=== PATIENT | female | born 1960 | race Caucasian/White ===

== ENCOUNTER 2018-03-09 13:51 | Inpatient (IN) | payer OTHER ==
[2018-03-09] MEDS ORDERED: cefTRIAXone\\ROCEPHIN 1 GM VIAL ONE (14:36)
[2018-03-09] MEDS ORDERED: Azithromycin 250 MG TAB ONE (14:36)
[2018-03-09] MEDS ORDERED: Sodium Chloride 0.9% 100 ML ONE (14:36)
--- NOTE | 2018-03-09 15:06 | RAD ---
CHEST 1 VIEW: Date: 03/09/18 HISTORY: Cough. COMPARISON: None. FINDINGS: There is a right basilar air space opacity. There are multiple coronary artery stents. No pneumothora x. No effusion. IMPRESSION: Right basilar air space opacity concerning for infection. Follow-up recommended. POS: [facility]
[2018-03-09 16:09] LABS: ALT (SGPT) 14 U/L (8-55); AST (SGOT) 21 U/L (5-34); Albumin 3.9 g/dL (3.5-5.0); Alkaline Phosphatase 99 U/L (40-150); Anion Gap 16 mmol/L (10-20); BUN (Urea Nitrogen) 16 mg/dL (9.8-20.1); Bilirubin, Total 0.7 mg/dL (0.2-1.2); Calc. Creatinine Clearance 0 mL/min (70-130); Calcium 9.2 mg/dL (7.8-10.44); Carbon Dioxide 21 mmol/L (22-29); Chloride 101 mmol/L (98-107); Estimated GFR-MDRD 49; Globulin 3.2 g/dL (2.4-3.5); Glucose 258 mg/dL (70-105); Protein, Total 7.1 g/dL (6.0-8.3); Sodium 135 mmol/L (136-145)
[2018-03-09] MEDS ORDERED: Ondansetron PF 4 MG/2 ML Vial ONE ×2 (16:16→17:32)
[2018-03-09 16:18] LABS: #Lymphocytes 0.9 thou/uL (1.20-3.40); #Monocytes 0.4 thou/uL (0.11-0.59); #Neutrophils 3.9 thou/uL (1.40-6.50); %Basophils 0.1 % (0.0-1.0); %Eosinophils 0.4 % (0.0-10.0); %Lymphocytes 17.3 % (21.0-51.0); %Monocytes 8.3 % (0.0-10.0); %Neutrophils 73.8 % (42.0-75.0); Hemoglobin 15.1 g/dL (12.0-16.0); Mean Corpuscular Hemoglobin 29.5 pg (27.0-31.0); Mean Corpuscular Volume 89.5 fL (78.0-98.0); Mean Platelet Volume 7.8 fL (7.4-10.4); Platelet Count 169 thou/uL (130-400); RBC Distribution Width 12.2 % (11.5-14.5); Red Blood Cell (RBC) Count 5.12 mill/uL (4.20-5.40); White Blood Cell (WBC) Count 5.2 thou/uL (4.8-10.8)
[2018-03-09] MEDS ORDERED: Acetaminophen 500 MG TAB ONE (17:39)
[2018-03-09] MEDS ORDERED: cloNIDine 0.1 MG TAB PO PRN (18:27)
[2018-03-09] MEDS ORDERED: Ondansetron PF 4 MG/2 ML Vial IVP PRN (18:27)
[2018-03-09] MEDS ORDERED: Acetaminophen 500 MG TAB PO PRN (18:27)
[2018-03-09] MEDS ORDERED: Ondansetron ODT 4 MG TAB PO PRN (18:27)
[2018-03-09] MEDS ORDERED: Benzonatate 100 MG CAP PO PRN (18:27)
[2018-03-09] MEDS ORDERED: hydrALAZINE 20 MG/ML VIAL SLOW IVP PRN (18:27)
[2018-03-09 18:51] VITALS: BMI 28.4
[2018-03-09] MEDS: Sodium Chloride 0.9% 1,000 ML IV SCH (20:37)
[2018-03-09] MEDS: Famotidine 20 MG TAB PO SCH (20:40)
--- NOTE | 2018-03-10 00:28 | HP ---
DATE OF ADMISSION: 03/09/2018 PRIMARY CARE PHYSICIAN: Peter call admission. CHIEF COMPLAINT: Body aches and fatigue. HISTORY OF PRESENT ILLNESS: This is a 57-year-old female who presents to [facility] complaining of 3- to 4-day history of increasing fatigue, weakness, body ache s, and fever. Patient states she thought she had a viral infection and self-managed with Mucinex and DayQuil. Patient states the symptoms continued to progress with chills, cough, congestion, and fati pamela. Patient states she was recently visiting her son driving back from [place] to [place] when she langston d to sample puller to the side of the road due to the symptoms described previously. Patient states she has recently received an influenza vaccination in 01/2018 and a pneumonia vaccination in 2016. Arlene lieberman relates the history of chronic immunosuppressive therapy, status post right kidney transplant in 2 . Patient denied any specific sick contacts family members with similar symptoms, history of pneu monia or recurrent infections. Patient denies any recent antibiotic exposure or new medications. Jones jones denied any change to bowel habits, dysuria, hemoptysis, or hematemesis. In the emergency room, patient underwent general evaluation including portable chest x-ray imaging showing questionable rig ht lower lobe infiltrate. Patient received IV fluids x1 liter in addition to Rocephin and azithromyc in after concern for developing pneumonia. Patient also received DuoNebs x1 treatment. PAST MEDICAL HISTORY: 1. Coronary artery disease, status post cardiac stent placement x13?. 2. Diabetes mellitus, type 2. 3. Hypertension. 4. Chronic obstructive pulmonary disease. 5. Chronic immunosuppressive therapy. PAST SURGICAL HISTORY: 1. Status post right renal transplant in 2008. 2. Status post cholecystectomy. 3. Status post placement of AV fistula to the right upper extremity, nonfunctioning. 4. Status post hysterectomy. 5. Status post multiple ear surgeries. CURRENT MEDICATIONS: 1. Amlodipine 10 mg 1 tab p.o. daily. 2. Lipitor 40 mg p.o. at bedtime. 3. Bupropion 150 mg p.o. b.i.d. 4. Plavix 75 mg 1 tab p.o. daily. 5. Flonase 1 spray in each naris daily. 6. Hydroxyzine 50 mg p.o. b.i.d. 7. Lamotrigine 150 mg p.o. daily. 8. Magnesium oxide 500 mg p.o. b.i.d. 9. Ranitidine 150 mg p.o. daily. 10. Tizanidine 4 mg p.o. t.i.d. 11. [place] 10/325 mg p.o. q.6 hours p.r.n. pain. 12. Prograf 2 mg p.o. b.i.d. 13. Mycophenolate 500 mg p.o. b.i.d. 14. Benadryl 50 mg p.o. at bedtime. ALLERGIES: PENICILLIN. FAMILY HISTORY: Positive for hypertension. SOCIAL HISTORY: Patient resides in the [place], [place] area. No current alcohol, tobacco, or illicit dr ug use. REVIEW OF SYSTEMS: The following complete review of systems was otherwise negative except as stated per HPI: Constitutional: Weight loss or gain, ability to conduct usual activities. Skin: Rash, it vesna. Eyes: Double vision, pain. ENT/Mouth: Nose bleeding, neck stiffness, pain, tenderness. Ca rdiovascular: Palpitations, dyspnea on exertion, orthopnea. Respiratory: Shortness of breath, whee zing, cough, hemoptysis, fever, or night sweats. Gastrointestinal: Poor appetite, abdominal pain, h eartburn, nausea, vomiting, constipation, or diarrhea. Genitourinary: Urgency, frequency, dysuria, nocturia. Musculoskeletal: Pain, swelling. Neurologic/Psychiatric: Anxiety, depression. Allergy/ Immunologic: Skin rash, bleeding tendency. PHYSICAL EXAMINATION: VITAL SIGNS: On admission, blood pressure 129/101, pulse 90, respiratory rate 22, temperature 101.5 degrees Fahrenheit, O2 saturation 97% on room air. GENERAL APPEARANCE: This is a 57-year-old female, alert and oriented x3, pleasant, in mild distress. HEENT: Pupils are equal, round, and reactive to light and accommodation. Extraocular muscles are in tact. No scleral icterus, no conjunctival injection. Nares patent. OP is clear. Teeth in fair rep air. NECK: Supple, no cervical adenopathy, no thyromegaly, no carotid bruits, no JVD appreciated. Cervic al spine with full active and passive range of motion. No meningeal signs noted. CHEST: Lungs are clear to auscultation bilaterally. Diminished in right lower lobe. CARDIOVASCULAR: S1, S2, without noted murmur, rub, or gallop. ABDOMEN: Rounded, soft, nontender, nondistended. Bowel sounds are positive in all four quadrants. There is no hepatosplenomegaly, no abdominal bruits, no rebound or guarding appreciated. EXTREMITIES: Warm and dry with fair turgor. No clubbing, cyanosis, or asymmetric edema appreciated. Pulses palpable distally at the dorsalis pedis, posterior tibial, and popliteal arteries bilaterall y. Right upper forearm with a nonfunctioning dialysis shunt. NEUROLOGIC: Cranial nerves II through XII are grossly intact. No focal or lateralizing signs apprec iated. PERTINENT LABORATORY AND X-RAY FINDINGS: Sodium 135, potassium 3.0, chloride 101, CO2 of 21, BUN 16, creatinine 1.15. Estimated GFR 49, glucose 258. Lactic acid level 1.6, calcium 9.2. LFTs within n ormal limits. CBC showed a white blood cell count of 5.2, hemoglobin 15, hematocrit 46, platelet cou nt 169 with 74% neutrophils. Influenza A and B antigen dated 03/09/2018 negative. Portable chest x- ray dated 03/09/2018 showed right basilar airspace opacity. Multiple coronary artery stents noted. Telemetry monitoring shows sinus mechanism with heart rates in the 90s. ASSESSMENT AND PLAN: 1. Right lower lobe, bacterial pneumonia. Patient will be observed on the medical floor. We will c ontinue Rocephin 2 grams IV q.24 hours with additional Levaquin 750 mg IV q.24 hours. Continue gener al pulmonary supportive measures. DuoNebs q.4 hours p.r.n. Blood cultures x2 pending. 2. Chronic kidney disease, stage 3. We will continue IV fluids with normal saline at 100 mL per kodi r. Avoid nephrotoxic agents and limit contrast exposure. Repeat creatinine in the a.m. 3. Hypokalemia. Potassium chloride supplementation 40 mEq p.o. daily. Repeat potassium level in th e a.m. 4. Hypertension. We will resume home antihypertensive regimen and monitor serial blood pressures. 5. Status post right renal transplant. We will continue immunosuppressive therapy with mycophenolat e and Prograf. 6. Coronary artery disease. Chronic and stable. Continue Lipitor 40 mg at bedtime. Continue Plavi x 75 mg daily. 7. Prophylaxis. Sequential compression devices while in bed. Pepcid 20 mg p.o. b.i.d. 8. Code status is FULL. Surrogate medical decision maker is patient's son.
[2018-03-10 05:14] LABS: Band 15 % (5-11); Hemoglobin 12.9 g/dL (12.0-16.0); Lymphocytes 23 % (21-51); MDiff Complete? YES; Mean Corpuscular HGB CONC 33.1 g/dL (32.0-36.0); Mean Corpuscular Hemoglobin 29.8 pg (27.0-31.0); Mean Corpuscular Volume 89.8 fL (78.0-98.0); Mean Platelet Volume 7.7 fL (7.4-10.4); Metamyelocyte 1 % (0-0); Monocytes 13 % (0-10); Neutrophil 48 % (42-75); PLT Morphology Comment Appears Adequate; Platelet Count 158 thou/uL (130-400); RBC Distribution Width 12.2 % (11.5-14.5); Red Blood Cell (RBC) Count 4.33 mill/uL (4.20-5.40); White Blood Cell (WBC) Count 3.9 thou/uL (4.8-10.8)
[2018-03-10 05:26] LABS: ALT (SGPT) 11 U/L (8-55); AST (SGOT) 14 U/L (5-34); Albumin 3.3 g/dL (3.5-5.0); Alkaline Phosphatase 79 U/L (40-150); Anion Gap 14 mmol/L (10-20); BUN (Urea Nitrogen) 11 mg/dL (9.8-20.1); Bilirubin, Total 0.4 mg/dL (0.2-1.2); Calc. Creatinine Clearance 75 mL/min (70-130); Calcium 8.7 mg/dL (7.8-10.44); Carbon Dioxide 22 mmol/L (22-29); Chloride 105 mmol/L (98-107); Estimated GFR-MDRD 62; Globulin 2.8 g/dL (2.4-3.5); Glucose 186 mg/dL (70-105); Potassium 3.2 mmol/L (3.5-5.1); Protein, Total 6.1 g/dL (6.0-8.3); Sodium 138 mmol/L (136-145)
[2018-03-10] MEDS: Famotidine 20 MG TAB PO SCH ×2 (08:47→21:14)
[2018-03-10] MEDS: Sodium Chloride 0.9% 1,000 ML IV SCH ×3 (08:47→21:08)
[2018-03-10] MEDS ORDERED: Tacrolimus 1 MG CAP PO SCH (10:15)
[2018-03-10] MEDS ORDERED: Clopidogrel Bisulfate 75 MG TAB PO SCH (10:15)
[2018-03-10] MEDS ORDERED: Amlodipine 10 MG TAB PO SCH (10:15)
[2018-03-10] MEDS ORDERED: Bupropion 150 MG SR TAB PO SCH (10:15)
[2018-03-10] MEDS ORDERED: Mycophenolate 250 MG CAP PO SCH (10:15)
--- NOTE | 2018-03-10 13:45 | PDOC.PN ---
- Subjective Encounter Start Date: 03/10/18 Encounter Start Time: 13:35 Subjective: f/u for RLL PNA on Rocephin/Zithromax. States feeling weak and some -: coughing. - Objective Resuscitation Status: Resuscitation Status FULL:Full Resuscitation MAR Reviewed: Yes Vital Signs & Weight: Vital Signs (12 hours) Temp Pulse Resp BP BP Pulse Ox 03/10/18 11:09 98.3 F 88 20 113/70 93 L 03/10/18 10:59 88 129/82 03/10/18 07:13 98.9 F 88 20 129/82 92 L 03/10/18 04:15 99.3 F 93 18 141/86 H 92 L Weight Weight 155 lb 8 oz I&O: 03/09/18 03/10/18 03/11/18 06:59 06:59 06:59 Intake Total 150 1000 Balance 150 1000 Result Diagrams: 03/10/18 04:22 03/10/18 04:22 Additional Labs: Laboratory Tests 03/09/18 03/09/18 03/10/18 15:33 16:00 04:22 WBC 5.2 Band Neuts % (Manual) 15 H Potassium 3.0 L Carbon Dioxide 21 L Creatinine 1.15 H Estimated GFR (MDRD) 49 EKG Reviewed by me: Yes (Tele - SR) Phys Exam - Physical Examination Constitutional: NAD HEENT: PERRLA, sclera anicteric, oral pharynx no lesions Neck: no nodes, no JVD, supple, full ROM diminished in R lung base Respiratory: no wheezing, no rales S1, S2 Cardiovascular: RRR, no significant murmur, no rub, gallop Gastrointestinal: soft, non-tender, no distention, positive bowel sounds Musculoskeletal: no edema, pulses present Neurological: normal sensation, moves all 4 limbs Psychiatric: normal affect, A&O x 3 Skin: no rash, normal turgor, cap refill <2 seconds Dx/Plan (1) RLL pneumonia Code(s): J18.1 - LOBAR PNEUMONIA, UNSPECIFIED ORGANISM Status: Acute Comment : Suspected bacterial etiology, continue Rocephin and Zithromax, pulmonary supportive measures (2) QUIRINO (acute kidney injury) Code(s): N17.9 - ACUTE KIDNEY FAILURE, UNSPECIFIED Status: Acute Comment: Improved with IVF's, avoid nephrotoxic meds and limit contrast exposure (3) CKD (chronic kidney disease), stage III Code(s): N18.3 - CHRONIC KIDNEY DISEASE, STAGE 3 (MODERATE) Status: Chronic Comment: See above (4) Hypokalemia Code(s): E87.6 - HYPOKALEMIA Status: Acute Comment: KCL 40meq daily, repeat K+ level in am (5) HTN (hypertension) Code(s): I10 - ESSENTIAL (PRIMARY) HYPERTENSION Status: Chronic Qualifiers: Hypertension type: essential hypertension Qualified Code(s): I10 - Essential (primary) hypertension Comment: Stable, resume home BP regimen (6) Immunosuppression due to drug therapy Code(s): Z79.899 - OTHER CATSHOVEL [employer]IVER (CURRENT) DRUG THERAPY Status: Chronic Comment: continue Prograf and Mycophenolate - Plan continue antibiotics, respiratory therapy, out of bed/ambulate, DVT proph w/SCDs Stable overall -: Continue Rocephin/Zithromax -: Continue IVF's another 24h -: KCL 40meq po x 1 dose today -: Transfer to Medical floor, convert to inpt status * AM lab: BMP
[2018-03-10] MEDS ORDERED: Potassium Chloride 20 MEQ TAB PO SCH (14:00)
[2018-03-10] MEDS ORDERED: cefTRIAXone\\ROCEPHIN 2 GM in Sodium Chloride 0.9% 100 ML IVPB SCH (15:00)
[2018-03-10] MEDS ORDERED: tiZANidine HCl 4 MG TAB PO PRN (16:47)
[2018-03-10] MEDS ORDERED: clonazePAM 0.5 MG TAB PO PRN (16:48)
[2018-03-10] MEDS ORDERED: Mometasone Furoate 30 PUFF 220 MCG INH PRN (16:52)
[2018-03-10] MEDS ORDERED: hydrOXYzine Pamoate 25 mg Capsule PO PRN (16:53)
[2018-03-10] MEDS ORDERED: HYDROcodone/Acetaminophen 10/325 mg Tablet PO PRN (17:00)
[2018-03-10] MEDS ORDERED: Atorvastatin Calcium 40 MG TAB PO SCH (21:00)
[2018-03-10] MEDS: Mycophenolate 250 MG CAP PO SCH (21:14)
[2018-03-10] MEDS: lamoTRIgine 100 MG TAB PO SCH (21:14)
[2018-03-10] MEDS: Bupropion 150 MG SR TAB PO SCH (21:15)
[2018-03-10] MEDS: Tacrolimus 1 MG CAP PO SCH (21:33)
[2018-03-11 04:32] LABS: Anion Gap 11 mmol/L (10-20); BUN (Urea Nitrogen) 9 mg/dL (9.8-20.1); Calc. Creatinine Clearance 79 mL/min (70-130); Carbon Dioxide 24 mmol/L (22-29); Chloride 105 mmol/L (98-107); Estimated GFR-MDRD 65; Glucose 225 mg/dL (70-105); Potassium 3.6 mmol/L (3.5-5.1); Sodium 136 mmol/L (136-145)
[2018-03-11 04:47] LABS: Band 2 % (5-11); Hemoglobin 11.9 g/dL (12.0-16.0); Lymphocytes 36 % (21-51); MDiff Complete? YES; Mean Corpuscular HGB CONC 32.5 g/dL (32.0-36.0); Mean Corpuscular Hemoglobin 29.3 pg (27.0-31.0); Mean Corpuscular Volume 89.9 fL (78.0-98.0); Mean Platelet Volume 7.4 fL (7.4-10.4); Monocytes 8 % (0-10); Neutrophil 54 % (42-75); PLT Morphology Comment Appears Adequate; Platelet Count 165 thou/uL (130-400); RBC Distribution Width 12.2 % (11.5-14.5); RBC Morphology Normal; Red Blood Cell (RBC) Count 4.07 mill/uL (4.20-5.40)
[2018-03-11] MEDS: lamoTRIgine 100 MG TAB PO SCH (08:42)
[2018-03-11] MEDS: Mycophenolate 250 MG CAP PO SCH (08:42)
[2018-03-11] MEDS: Bupropion 150 MG SR TAB PO SCH (08:43)
[2018-03-11] MEDS: Famotidine 20 MG TAB PO SCH (08:43)
[2018-03-11] MEDS: Tacrolimus 1 MG CAP PO SCH (08:43)
[2018-03-11] MEDS ORDERED: Clopidogrel Bisulfate 75 MG TAB PO SCH (09:00)
[2018-03-11] MEDS ORDERED: LIRAGLUTIDE 1.8 MG SC SCH (09:00)
[2018-03-11] MEDS ORDERED: Amlodipine 10 MG TAB PO SCH (09:00)
[2018-03-11] MEDS ORDERED: Magnesium Oxide 250 MG TAB PO SCH (09:00)
[2018-03-11 11:05] VITALS: BP 124/83; TEMP 98.7
--- NOTE | 2018-03-11 11:41 | DIS ---
DATE OF ADMISSION: 03/09/2018 DATE OF DISCHARGE: 03/11/2018 DISCHARGE DIAGNOSES: 1. Right lower lobe bacterial pneumonia, suspected gram positive organism, improved. 2. Acute kidney injury, resolved. 3. Chronic kidney disease stage 3, stable. 4. Hypokalemia, resolved. 5. Hypertension, stable. 6. Immunosuppression due to drug therapy. CONSULTATIONS: None. PERTINENT LABORATORY DATA AND X-RAY FINDINGS: Potassium ranged between 3.0-3.6, creatinine ranged be tween 0.90-1.15. Estimated GFR ranged between 49-65. Lactic acid level 1.6. CBC showed a white blo od cell count ranged between 3.0-5.2. Blood cultures x2 dated 03/09/2018 showed no growth to date. Influenza A and B antigen dated 03/09/2018 negative. Portable chest x-ray dated 03/09/2018 showed ri ght basilar airspace opacity. HOSPITAL COURSE: Patient was admitted after presenting with fatigue, body aches and chest imaging co ncerning for right lower lobe infiltrate consistent with pneumonia. The patient with chronic immunos uppressive therapy with Prograf and mycophenolate initiated on IV antibiotic therapy with Rocephin an d Levaquin. The patient continued antibiotic therapy for approximately 72 hours, stabilizing without complication. The patient continued on IV fluids after mild acute kidney injury noted on metabolic screening resolving with hydration. The patient overall remained clinically stable with stable vital signs noted. I have examined the patient at the time of discharge and discussed followup instructio ns with the patient. The patient is ready for discharge on 03/11/2018. DISCHARGE MEDICATIONS: 1. Norvasc 10 mg 1 tab p.o. daily. 2. Lipitor 40 mg p.o. daily. 3. Bupropion XL 150 mg p.o. b.i.d. 4. Clonazepam 0.5 mg p.o. b.i.d. 5. Plavix 75 mg p.o. daily. 6. Flovent Diskus 50 mcg inhaled daily p.r.n. 7. [place] 10/325 mg 1 tab p.o. q.6 hours p.r.n. pain. 8. Hydroxyzine 50 mg p.o. b.i.d. p.r.n. 9. Lamotrigine 150 mg p.o. b.i.d. 10. Victoza 1.8 mg subcutaneously daily. 11. Magnesium oxide 500 mg 1 tab p.o. daily. 12. CellCept 500 mg p.o. b.i.d. 13. Ranitidine 150 mg p.o. daily. 14. Prograf 2 mg p.o. b.i.d. 15. Tizanidine 4 mg p.o. t.i.d. p.r.n. 16. Levaquin 750 mg p.o. daily x8 days. FOLLOWUP: The patient will follow up with her primary care provider within 7 days of discharge. CONDITION ON DISCHARGE: Stable. ACTIVITY: ad laurel. DIET: Heart healthy and ADA. CODE STATUS: FULL. DISPOSITION: Home, 03/11/2018.
[2018-03-11] MEDS: Sodium Chloride 0.9% 1,000 ML IV SCH (14:10)
== END 2018-03-11 14:18 | disposition home or self-care (01) | DRG 194 ==
LOC: ERS 13:51 → OBSVTOIN 18:12 → 2SW 18:12 → T4-B 03-10 17:14
PROVIDERS: ADMIT Family Medicine; ATTEND Family Medicine
DX: J18.9 Pneumonia, unspecified organism (principal); N17.9 Acute kidney failure, unspecified; Z94.0 Kidney transplant status; I12.9 Hypertensive chronic kidney disease with stage 1 through stage 4 chronic kidney disease, or unspecified chronic kidney disease; E11.22 Type 2 diabetes mellitus with diabetic chronic kidney disease; N18.3 Chronic kidney disease, stage 3 (moderate); E87.6 Hypokalemia; Z79.899 Other long term (current) drug therapy; I25.10 Atherosclerotic heart disease of native coronary artery without angina pectoris; J44.9 Chronic obstructive pulmonary disease, unspecified
CPT/HCPCS: 36415; 36416; 71045; 80048; 80053; 83605; 85007; 85025; 85027; 87040; 87804; 94640; 96361; 96365; 96374; 96375; J0696; J1956; J2405; J7050; J7507; J7517; J7620; Q0177